=== PATIENT | male | born 1950 | race Caucasian/White ===

== ENCOUNTER → 2021-01-21 | Outpatient (CLI) | payer MEDICARE | END | disposition home or self-care (01) | LOC: RAD 14:54 | PROVIDERS: ATTEND Physician Assistant Surgical | DX: S46.211A Strain of muscle, fascia and tendon of other parts of biceps, right arm, initial encounter (principal); M66.821 Spontaneous rupture of other tendons, right upper arm; X58.XXXA Exposure to other specified factors, initial encounter; Y93.89 Activity, other specified; Y92.89 Other specified places as the place of occurrence of the external cause; Y99.8 Other external cause status ==

== ENCOUNTER → 2021-04-16 | Outpatient (CLI) | payer MEDICARE, OTHER | END | disposition home or self-care (01) | LOC: CFH 09:35 | PROVIDERS: ATTEND Family Medicine | DX: Z13.6 Encounter for screening for cardiovascular disorders (principal); E78.5 Hyperlipidemia, unspecified | CPT/HCPCS: 75571 ==

== ENCOUNTER → 2021-05-13 | Outpatient (CLI) | payer MEDICARE | END | disposition home or self-care (01) | LOC: RAD 10:16 | PROVIDERS: ATTEND Family Medicine | DX: R97.20 Elevated prostate specific antigen [PSA] (principal); R06.09 Other forms of dyspnea; E29.1 Testicular hypofunction | CPT/HCPCS: 36415; 71046; 82627; 84153; 84154; 84270; 84402; 84403 ==

== ENCOUNTER 2021-06-06 09:17 | Outpatient (CLI) | payer MEDICARE ==
[2021-06-06 09:52] LABS: ALBUMIN 3.8 g/dL (3.4-5.0); BILIRUBIN, DIRECT 0.2 mg/dL (0.1-0.2)
[2021-06-06 09:55] LABS: BILIRUBIN,INDIRECT 0.5 mg/dL (0.0-2.0); BILIRUBIN,TOTAL 0.7 mg/dL (0.2-1.0); CHOL/HDL RATIO 2.4; LDL/HDL RATIO 0.9 (0.5-3.0); TOTAL PROTEIN 7.5 g/dL (6.4-8.2)
== END 2021-06-06 23:59 | disposition home or self-care (01) ==
LOC: LAB 09:17
PROVIDERS: ATTEND Internal Medicine Cardiovascular Disease
DX: I25.10 Atherosclerotic heart disease of native coronary artery without angina pectoris (principal); E78.2 Mixed hyperlipidemia
CPT/HCPCS: 36415; 80061; 80076

== ENCOUNTER 2021-07-24 08:31 | Day surgery (SDC) | payer MEDICARE ==
[~2021-07-24] VITALS: Ht 180.3 cm; Wt 80.0 kg
[2021-07-24] MEDS ORDERED: DIPHENHYDRAMINE 50 MG/ML, 1ML IVPush ONE (09:00)
[2021-07-24] MEDS ORDERED: FLUT9.9S NAS (09:13)
[2021-07-24] MEDS ORDERED: UBID30CA9 PO (09:13)
[2021-07-24] MEDS ORDERED: PANT40TA6 PO (09:13)
[2021-07-24] MEDS ORDERED: EZET10TA70 PO (09:13)
[2021-07-24] MEDS ORDERED: OMEG1CAP39 PO (09:13)
[2021-07-24] MEDS ORDERED: IBUP200C8 PO (09:13)
[2021-07-24] MEDS ORDERED: TAMS-11 PO (09:13)
[2021-07-24] MEDS ORDERED: AZEL23SP2 NAS (09:13)
[2021-07-24] MEDS ORDERED: ROSU20TA2 PO (09:13)
[2021-07-24] MEDS ORDERED: ASCO1TAB2 PO (09:13)
[2021-07-24] MEDS ORDERED: ASPI81TA45 PO (09:13)
[2021-07-24] MEDS ORDERED: GABA300C PO (09:13)
[2021-07-24] MEDS ORDERED: ALIGN PROBIOTIC PO (09:13)
[2021-07-24] MEDS ORDERED: CETI10CA PO (09:13)
[2021-07-24] MEDS ORDERED: MULT-717 PO (09:13)
[2021-07-24] MEDS ORDERED: VALA500T8 PO (09:13)
[2021-07-24] MEDS ORDERED: FAMO-79 PO (09:13)
[2021-07-24] MEDS ORDERED: TESTOST CYP INJ (09:13)
[2021-07-24] MEDS ORDERED: PLEASE ENTER HEIGHT AND WEIGHT MC SCH (09:30)
[2021-07-24 09:45] LABS: BASOPHILS % (AUTO) 1 % (0-1); EOSINOPHILS % (AUTO) 2 % (1-7); LYMPHOCYTES % (AUTO) 31 % (22-44); MEAN CORPUSCULAR HEMOGLOBIN 32.4 pg (27.5-34.5); MEAN CORPUSCULAR HGB CONC 33.9 g/dL (33.2-36.2); MEAN PLATELET VOLUME 7.8 fL (7.4-10.4); MONOCYTES % (AUTO) 9 % (2-9); NEUTROPHILS % (AUTO) 58 % (42-75); PLATELET COUNT 216 x10^3/uL (130-400); RED BLOOD COUNT 5.27 x10^6/uL (4.38-5.82); RED CELL DISTRIBUTION WIDTH 14.5 % (9.4-14.8)
[2021-07-24] MEDS ORDERED: MIDAZOLAM 1 MG/ML, 2ML ONE (10:30)
[2021-07-24] MEDS ORDERED: NITROGLYCERIN 5 MG/ML, 10ML ONE (10:31)
[2021-07-24] MEDS ORDERED: HEPARIN 1,000 UNITS/ML, 10ML ONE (10:31)
[2021-07-24] MEDS ORDERED: LIDOCAINE-MPF 1%, 5ML ONE (10:31)
[2021-07-24] MEDS ORDERED: FENTANYL PF 100 MCG/2ML ONE (10:31)
[2021-07-24] MEDS ORDERED: VERAPAMIL 2.5 MG/ML, 2ML ONE (10:31)
[2021-07-24] MEDS ORDERED: SODIUM CHLORIDE 0.9% 1,000 ML IV SCH (11:30)
== END 2021-07-24 12:57 | disposition home or self-care (01) ==
LOC: CACL 08:31
PROVIDERS: ATTEND Internal Medicine Cardiovascular Disease
DX: R93.1 Abnormal findings on diagnostic imaging of heart and coronary circulation (principal); I25.10 Atherosclerotic heart disease of native coronary artery without angina pectoris; E78.2 Mixed hyperlipidemia; Z79.899 Other long term (current) drug therapy; Z87.891 Personal history of nicotine dependence; Z82.49 Family history of ischemic heart disease and other diseases of the circulatory system
CPT/HCPCS: 36415; 85025; 93454; 99156; 99157; C1769; C1894; J1644; J2250; J3010; Q9967